=== PATIENT | female | born 1985 | race Caucasian/White ===

== ENCOUNTER 2023-02-05 09:05 | Emergency (ER) | payer OTHER, SELFPAY ==
[2023-02-05 09:06] VITALS: BP 174/105; PULSE 109; RESP 14; TEMP 36.5; O2SAT 95; BMI 20.9
--- NOTE | 2023-02-05 09:19 | ED.HA ---
HPI - Headache General Chief Complaint: Headache Stated Complaint: migraine T-1/ meds not helping Time Seen by Provider: 02/05/23 09:11 Source: patient Mode of arrival: Ambulatory Limitations: no limitations History of Present Illness HPI Narrative: 37-year-old female. Has a history of migraines. Normally just takes BC powder at home when the headache starts in this seems to help. She states she is never been to the emergency department in the past because of headaches. She does get a headache 1 to 2 times a month. The headache she is currently having is the worst migraine that she is had but in character it feels like prior headaches. No fevers. Does have some neck pain but she is chronic neck pain. States she is had a decreased appetite. Her current headache started yesterday and was a gradual onset. Related Data Previous Rx's Medication Instructions Recorded norgestimate 0.18 mg/0.215 mg/0.25 1 tab PO DAILY #84 tabs 08/03/22 mg-ethinyl estradiol 25 mcg tablet hydroxyzine HCl 10 mg tablet 10 mg PO TID PRN anxiety attack 12/03/22 #20 tabs Allergies Allergy/AdvReac Type Severity Reaction Status Date / Time No Known Drug Allergies Allergy Verified 02/05/23 09:11 Review of Systems Constitutional Constitutional: Reports system reviewed and no additional complaints, except as documented Eyes Eyes: Reports system reviewed and no additional complaints, except as documented Integumentary/Breasts Skin/Breast: Reports system reviewed and no additional complaints, except as documented Neurologic Neurologic: Reports system reviewed and no additional complaints, except as documented Hematologic/Lymphatic On Anticoagulants: No Patient History Medical History Anxiety Cervical cancer screening Chronic pain due to injury Depression Fibromyalgia (~2013) Generalized anxiety disorder with panic attacks History of migraine Plantar warts Screening for HPV (human papillomavirus) Trauma in childhood Surgical History Hx of LASIK Family History Father Cancer Heart disease Hyperlipidemia Hypertension Mother Hyperlipidemia Hypertension Anxiety Grandfather Heart disease Grandfather Heart disease Grandmother Mental health problem Social History Smoking Status: Never smoker alcohol intake: current (1 glass every other week ) substance use type: does not use Smoking Status: Never smoker alcohol intake frequency: holidays/special occasions only Substance Use Type: does not use Exam Initial Vital Signs Initial Vital Signs: Vital Signs Temperature 97.7 F 02/05/23 09:06 Pulse Rate 109 H 02/05/23 09:06 Respiratory Rate 14 02/05/23 09:06 Blood Pressure 174/105 H 02/05/23 09:06 Pulse Oximetry 95 02/05/23 09:06 Oxygen Delivery Method Room Air 02/05/23 09:06 Const General: cooperative and comfortable HENMT Head: normal to inspection Neck Neck: no meningeal signs Resp Effort & Inspection: normal respiratory effort Cardio Rate: regular rate Neuro General: patient alert, patient awake, patient oriented x3 and moves all extremities Cognition: normal cognition Speech: speech normal Gait: normal gait Extrem Other: No gross deformities Course Orders Ordered: Discontinued Medications Diphenhydramine HCl (Diphenhydramine 50 Mg/Ml Vial) 25 mg IV NOW ONE Stop: 02/05/23 09:19 Last Admin: 02/05/23 09:28 Dose: 25 mg Documented By: Sodium Chloride (Normal Saline 0.9%) 1,000 mls @ 1,000 mls/hr IV BOLUS ONE Stop: 02/05/23 10:11 Last Admin: 02/05/23 09:24 Dose: 1,000 mls/hr Documented By: Ketorolac Tromethamine (Ketorolac 30 Mg/Ml Vial) 30 mg IV NOW ONE Stop: 02/05/23 09:19 Last Admin: 02/05/23 09:33 Dose: 30 mg Documented By: ST Metoclopramide HCl (Metoclopramide 10 Mg/2 Ml Inj) 10 mg IV NOW ONE Stop: 02/05/23 09:19 Last Admin: 02/05/23 09:32 Dose: 10 mg Documented By: ST Vital Signs Vital signs: Vital Signs - 8 hr 02/05/23 09:06 Temperature 97.7 F Pulse Rate 109 H Respiratory Rate 14 Blood Pressure 174/105 H Pulse Oximetry 95 Oxygen Delivery Method Room Air MDM - Headache MDM Narrative Medical decision making narrative: Patient reports improvement of symptoms after the above-stated therapies. I have low suspicion for meningitis. Low suspicion for intracranial hemorrhage. She states she actually gets headaches very frequently but only migraines about twice a month. She states that her headache is much more manageable like to be discharged home. She was given return precautions. She expressed understanding and agreement. Discharge Plan Departure Patient Disposition: Home Clinical Impression: Migraine Instructions: DI for Migraine Activity Restrictions/Additional Instructions: Recommend that you continue to take all of your medications as directed. Contact your primary doctor for a follow-up. Return to the emergency department for new or worsening symptoms. Prescriptions: No Action norgestimate-ethinyl estradiol 0.18/0.215/0.25 mg-25 mcg tablet 1 tab PO DAILY Qty: 84 3RF hydroxyzine HCl 10 mg tablet 10 mg PO TID PRN (Reason: anxiety attack) Qty: 20 3RF Referrals: Chuck Tierney DO [Primary Care Provider] - Stand Alone Forms: Patient Portal/API
[2023-02-05] MEDS: SODIUM CHLORIDE 0.9% 1,000 ML 1000 ML IV (09:24)
[2023-02-05] MEDS: diphenhydrAMINE 50 MG/ML VIAL 25 MG IV (09:28)
[2023-02-05] MEDS: METOCLOPRAMIDE 10 MG/2 ML INJ IV (09:32)
[2023-02-05] MEDS: KETOROLAC 30 MG/ML VIAL IV (09:33)
[2023-02-05 10:45] VITALS: BP 108/69; PULSE 69; RESP 14; O2SAT 100
== END 2023-02-05 10:50 | disposition home or self-care (01) ==
PROVIDERS: Emergency Provider Emergency Medicine; PCP Family Medicine
DX: G43.909 Migraine, unspecified, not intractable, without status migrainosus (principal)
CPT/HCPCS: 36415; 96361; 96374; 96375; 99284; J1200; J1885; J2765

== ENCOUNTER → 2023-02-08 15:49 | Outpatient (CLI) | payer OTHER, SELFPAY ==
[2023-02-08 16:12] LABS: Appearance Urine UA CLEAR; Bilirubin Urine UA NEGATIVE (NEGATIVE); Color Urine UA YELLOW; Glucose Urine UA NEGATIVE (Negative); Ketones Urine UA TRACE (NEGATIVE); Leukocyte Esterase Urine UA NEGATIVE (NEGATIVE); Nitrite Urine UA NEGATIVE (Negative); Occult Blood Urine UA NEGATIVE (Negative); Protein Urine UA NEGATIVE (Negative); Specific Gravity Urine UA 1.025 (1.000-1.035); Urobilinogen Urine UA 0.2 E.U./dL (0.2)
[2023-02-08 16:14] LABS: Add Manual Diff / Slide Review NO; Basophils Absolute Auto 0 /uL (0-100); Basophils Percent Auto 0.5 % (0-2); Eosinophils Absolute Auto 200 /uL (0-450); Eosinophils Percent Auto 2.3 % (2-4); Hematocrit 40.5 % (36-46); Hemoglobin 13.8 g/dL (12.0-16.0); Lymphocytes Absolute Auto 2500 /uL (1100-4500); Lymphocytes Percent Auto 38.7 % (25-40); Mean Corpuscular Hemoglobin 31.6 PG (26-34); Monocytes Absolute Auto 400 /uL (0-900); Monocytes Percent Auto 5.5 % (3-14); Neutrophils Absolute Auto 3500 /uL (1500-7000); Platelet Count 369 X10^3/uL (150-400); Red Blood Cell Count 4.35 X10^6/uL (4.0-5.2); Red Cell Distribution Width 12.8 % (11.6-14.8); White Blood Cell Count 6.6 X10^3/uL (4.5-11.0)
[2023-02-08 16:30] LABS: Erythrocyte Sedimentation Rate 3 MM/HR (0-20); pH Urine UA 6.5 (4.5-8.0)
[2023-02-08 16:32] LABS: Alanine Aminotransferase 20 IU/L (<35); Albumin 4.3 g/dL (3.5-5.0); Albumin Globulin Ratio 1.3 (1.0-2.8); Alkaline Phosphatase 37 U/L (38-126); Aspartate Aminotransferase 26 IU/L (14-36); BUN Creatinine Ratio 14.7 (6-22); Bilirubin Total 0.3 mg/dL (0.2-1.3); Blood Urea Nitrogen 10 mg/dL (7-17); Calcium 9.1 mg/dL (8.4-10.2); Carbon Dioxide 24 mmol/L (22-32); Chloride 108 mmol/L (98-107); Estimated Glomerular Filt Rate > 60 mL/min (>60); Globulin 3.3 g/dL (1.7-4.1); Glucose 99 mg/dL (70-100); HEMOLYSIS < 15 (0-50); Potassium 4.4 mmol/L (3.4-5.1); Sodium 140 mmol/L (137-145); Total Protein 7.6 g/dL (6.3-8.2)
[2023-02-08 16:37] LABS: Bacteria Urine Few (2-10); RBC Urine 0-1/HPF (0-5/HPF); WBC Urine 0-1/HPF (0-5/HPF)
[2023-02-08 16:38] LABS: Calcium Oxalate Crystals Urine Few; Culture Indicated Urine Cult Not Indicated; Squamous Epithelial Cell Urine 5-10 /HPF (0-5/HPF)
[2023-02-08 17:05] LABS: TSH w/ Reflex to FT4 1.34 uIU/mL (0.47-4.68)
== END ==
PROVIDERS: PCP Family Medicine; Referring Provider Pediatrics; Visit Provider Pediatrics
DX: R03.0 Elevated blood-pressure reading, without diagnosis of hypertension (principal); G43.909 Migraine, unspecified, not intractable, without status migrainosus; F41.1 Generalized anxiety disorder; F41.0 Panic disorder [episodic paroxysmal anxiety]
CPT/HCPCS: 36415; 80053; 81001; 84443; 85025; 85651

== ENCOUNTER → 2023-05-06 12:40 | Outpatient (CLI) | payer OTHER, SELFPAY ==
--- NOTE | 2023-05-06 12:41 | DI.CT.S_ITS ---
PROCEDURE: CT HEAD/BRAIN WO CON INDICATIONS: worsening migraine headaches TECHNIQUE: Noncontrast 4.5 mm thick angled axial sections acquired from the foramen magnum to the vertex, with coronal and sagittal reformats. For radiation dose reduction, the following was used: automated exposure control, adjustment of mA and/or kV according to patient size. COMPARISON: None. FINDINGS: Image quality: Diagnostic. CSF spaces: Basal cisterns are patent. No extra-axial fluid collections. Ventricles are normal in size and shape. Brain: No midline shift. No intracranial masses or hemorrhage. Langford-white matter interface is normal. The cerebellar tonsils demonstrate a normal shape and are not abnormally low lying. Skull and face: Calvarium and visualized facial bones are intact, without suspicious lesions. Sinuses: Visualized sinuses and mastoids are clear. IMPRESSION: Unremarkable intracranial study, without an imaging explanation found for the patient's presenting history of headache. To the limits of this noncontrast study, no findings masses or mass effect can be seen. Negative for hydrocephalus. Dictated by: Roel Ramon M.D. on 05/06/2023 at 13:40 Approved by: Roel Ramon M.D. on 05/06/2023 at 13:42
== END ==
PROVIDERS: PCP Family Medicine; Referring Provider Family Medicine; Visit Provider Family Medicine
DX: G43.109 Migraine with aura, not intractable, without status migrainosus (principal)
CPT/HCPCS: 70450

== ENCOUNTER → 2024-01-13 11:59 | Outpatient (CLI) | payer BC, SELFPAY ==
[2024-01-13 13:03] LABS: Add Manual Diff / Slide Review NO; Basophils Absolute Auto 100 /uL (0-100); Basophils Percent Auto 0.9 % (0-2); Eosinophils Absolute Auto 100 /uL (0-450); Eosinophils Percent Auto 1.2 % (2-4); Hematocrit 36.9 % (36-46); Hemoglobin 12.7 g/dL (12.0-16.0); Lymphocytes Absolute Auto 2300 /uL (1100-4500); Lymphocytes Percent Auto 37.8 % (25-40); Mean Corpuscular HGB Conc 34.4 % (30-36); Mean Corpuscular Hemoglobin 31.4 PG (26-34); Mean Corpuscular Volume 91.2 fL (80-100); Monocytes Absolute Auto 300 /uL (0-900); Monocytes Percent Auto 5.5 % (3-14); Neutrophils Absolute Auto 3300 /uL (1500-7000); Neutrophils Percent Auto 54.6 % (50-75); Platelet Count 373 X10^3/uL (150-400); Red Blood Cell Count 4.05 X10^6/uL (4.0-5.2); Red Cell Distribution Width 13.1 % (11.6-14.8)
== END ==
PROVIDERS: PCP Family Medicine; Referring Provider Family Medicine; Visit Provider Family Medicine
DX: N92.0 Excessive and frequent menstruation with regular cycle (principal)
CPT/HCPCS: 36415; 85025

== ENCOUNTER → 2024-01-28 08:30 | Outpatient (CLI) | payer BC, SELFPAY ==
--- NOTE | 2024-01-28 08:31 | DI.US.S_ITS ---
PROCEDURE: US PELVIC COMPLETE INDICATIONS: MENORRHAGIA TECHNIQUE: Real-time scanning was performed of the pelvic organs, with image documentation. Additional endovaginal scanning was necessary due to incomplete visualization of the adnexal and endometrial structures by transabdominal scanning. COMPARISON: None. FINDINGS: Uterus: Uterus is retroverted and normal in size at 6.7 x 4.1 x 5.3 cm. The myometrium is homogeneous. The endometrium measures 1 mm combined thickness. Ovaries: The right ovary measures 2.0 x 3.7 x 1.3 cm, with a calculated ovarian volume of 5.0 cc. The left ovary measures 2.0 x 2.0 x 2.0 cm, with a calculated ovarian volume of 4.1 cc. A simple right ovarian cyst measures 1.8 cm. Other: No pathologic free abdominal or pelvic fluid. IMPRESSION: No visualized cause of menorrhagia. We strive to produce accurate, complete, and clear reports of imaging services. To assist us in improving patient care, this report was composed using standard report templates and voice recognition software. Therefore, it may contain abnormal punctuation, insertions and/or omissions. Occasional wrong-word or sound-alike substitutions may occur. Though we review the report and make efforts to correct it, we do recommend that the report be read carefully in proper context to recognize any text inaccuracies. Dictated by: Enriqueta Pacheco M.D. on 01/28/2024 at 13:35 Approved by: Enriqueta Pacheco M.D. on 01/28/2024 at 13:38
== END ==
LOC: US 08:30
PROVIDERS: PCP Family Medicine; Referring Provider Obstetrics & Gynecology; Visit Provider Obstetrics & Gynecology
DX: N92.0 Excessive and frequent menstruation with regular cycle (principal)
CPT/HCPCS: 76830; 76856; 93975

== ENCOUNTER → 2025-02-15 08:31 | Outpatient (CLI) | payer BC, SELFPAY ==
--- NOTE | 2025-02-15 08:32 | DI.MG.S_ITS ---
MM screening mammo BI: 02/15/2025. BI-RADS: 1 CLINICAL: 39-year old female for bilateral screening mammogram. Tyrer-Cuzick lifetime risk of 29.1%. Current reported family history of breast cancer: sister, paternal aunt's daughter and second paternal aunt. PRIOR EXAMS 01/28/2017. MAMMOGRAPHY TECHNIQUE: 2D and 3D (tomosynthesis) digital mammographic views obtained, with additional images as needed for full coverage. Current study was also evaluated with a Computer Aided Detection (CAD) system. DENSITY D. The breasts are extremely dense, which lowers the sensitivity of mammography. MAMMOGRAPHY FINDINGS Bilateral: No suspicious mass, asymmetry, microcalcification, or other abnormality seen. IMPRESSION: * No evidence of malignancy. RECOMMENDATIONS Bilateral * According to the Tyrer-Cuzick Risk Assessment Model, based on the information provided your patient has a greater than 20% lifetime risk for developing breast cancer. Consider supplemental screening with breast MRI and participation in a high risk screening program. * Annual screening mammography. OVERALL ASSESSMENT CATEGORY BI-RADS-1: Negative. The [employer] recommends annual screening mammography beginning at age 40 for women with average risk of breast cancer. ELECTRONICALLY SIGNED: Elena Aguilera M.D. on 02/15/2025 at 11:02:44 AM PT Interpreting Station ID: [id number]
== END ==
LOC: MAMMO 08:31
PROVIDERS: PCP Family Medicine; Referring Provider Family Medicine; Visit Provider Family Medicine
DX: Z12.31 Encounter for screening mammogram for malignant neoplasm of breast (principal); R92.343 Mammographic extreme density, bilateral breasts; Z80.3 Family history of malignant neoplasm of breast
CPT/HCPCS: 77063; 77067